=== PATIENT | male | born 1980 | race Caucasian/White ===

== ENCOUNTER 2022-07-04 21:32 | Emergency (ER) | payer BC ==
[2022-07-04 23:17] LABS: HEMOGLOBIN 15.5 gm/dl (14.0-17.5); RED BLOOD COUNT 5.09 M/UL (4.20-5.50); WHITE BLOOD COUNT 10.1 K/UL (4.5-11.0)
[2022-07-05 00:39] LABS: BUN/CREATININE RATIO 21 (0-10)
== END 2022-07-05 02:25 | disposition home or self-care (01) ==
LOC: ER1 21:32
PROVIDERS: Family Medicine
DX: R55 Syncope and collapse (principal); Z72.89 Other problems related to lifestyle; I10 Essential (primary) hypertension
CPT/HCPCS: 71045; 80053; 82550; 82553; 84484; 85025; 93005; 99284; G0480

== ENCOUNTER → 2022-07-09 | Outpatient (CLI) | payer BC ==
[2022-07-09 08:11] LABS: HEMOGLOBIN 15.6 gm/dl (14.0-17.5); RED BLOOD COUNT 5.12 M/UL (4.20-5.50); WHITE BLOOD COUNT 12.1 K/UL (4.5-11.0)
[2022-07-09 08:41] LABS: BUN/CREATININE RATIO 20 (0-10)
[2022-07-10 07:11] LABS: THYROXINE (T4) 8.8 ug/dL (4.5-12.0)
[2022-07-10 08:15] LABS: VITAMIN D, 25-HYDROXY 32.3 ng/mL (30.0-100.0)
== END ==
LOC: LAB 07:32
PROVIDERS: Nurse Practitioner
DX: R55 Syncope and collapse (principal); E78.5 Hyperlipidemia, unspecified; F41.9 Anxiety disorder, unspecified; K76.0 Fatty (change of) liver, not elsewhere classified; R74.8 Abnormal levels of other serum enzymes; E86.0 Dehydration
CPT/HCPCS: 36415; 80053; 80061; 81001; 83036; 84436; 84443; 84480; 85025

== ENCOUNTER → 2022-07-30 | Outpatient (CLI) | payer BC | LOC: KOH-I 14:16 | DX: R55 Syncope and collapse (principal) | CPT/HCPCS: 70450 ==